=== PATIENT | female | born 1970 | race African-American/Black ===

== ENCOUNTER 2023-11-18 23:18 | Emergency (ER) | payer OTHER ==
[~2023-11-18] VITALS: Ht 167.6 cm; Wt 95.3 kg
[2023-11-19] MEDS: HYDROCODONE/APAP 5/325MG TABLET PO ONE (02:30)
[2023-11-19] MEDS ORDERED: HYDROCODONE/APAP 5/325MG TABLET ONE (02:38)
[2023-11-19] MEDS ORDERED: HYDR-3972 PO (03:08)
[2023-11-19 03:36] VITALS: BP 142/86; TEMP 98.3; O2SAT 98
== END 2023-11-19 03:36 | disposition home or self-care (01) ==
LOC: ER 23:26
DX: M17.12 Unilateral primary osteoarthritis, left knee (principal); I10 Essential (primary) hypertension
CPT/HCPCS: 73564-TC